=== PATIENT | female | born 1945 | race Two or more races ===

== ENCOUNTER 2019-01-15 17:08 | Inpatient (IN) | payer OTHER ==
[~2019-01-15] VITALS: Ht 149.9 cm; Wt 52.2 kg
[2019-01-15] MEDS ORDERED: ASA81 MG PO (17:35)
[2019-01-15] MEDS ORDERED: ZESTRIL5 MG PO (17:35)
[2019-01-15] MEDS ORDERED: FOLIC ACID1 MG PO (17:36)
[2019-01-15] MEDS ORDERED: ZANTAC300 MG PO (17:36)
[2019-01-15] MEDS ORDERED: PROTONIX40 MG PO (17:36)
[2019-01-21] MEDS ORDERED: LEVSIN/SL0.125 MG SL (09:23)
[2019-01-21] MEDS ORDERED: PANTOPRAZOLE SO40 MG PO (09:23)
[2019-01-21] MEDS ORDERED: DICY20TA PO (09:23)
[2019-01-21] MEDS ORDERED: ACIDOPHILUS-PE1 EAC2 PO (09:23)
[2019-01-21] MEDS ORDERED: FLAGYL500MG PO (09:23)
[2019-01-21] MEDS ORDERED: LISINOPRIL5 MG PO (09:23)
== END 2019-01-21 12:41 | disposition home or self-care (01) | DRG 372 ==
LOC: ER 17:08 → MEDJ 01-16 09:35 → SEC-K 01-16 09:35 → MEDJ 01-16 12:16
PROVIDERS: ADMIT Internal Medicine
PROC: 8E0ZXY6 Isolation (ICD-10-PCS; principal; 2019-01-17)
DX: A04.72 Enterocolitis due to Clostridium difficile, not specified as recurrent (principal); K57.32 Diverticulitis of large intestine without perforation or abscess without bleeding; K21.9 Gastro-esophageal reflux disease without esophagitis; I10 Essential (primary) hypertension; J32.8 Other chronic sinusitis

== ENCOUNTER 2019-02-27 09:55 | Day surgery (SDC) | payer OTHER ==
[~2019-02-27 09:55] MED LIST: ACIDOPHILUS-PE1 EAC2 PO; ASA81 MG PO; DICY20TA PO; FLAGYL500MG PO; FOLIC ACID1 MG PO; LEVSIN/SL0.125 MG SL; LISINOPRIL5 MG PO; PANTOPRAZOLE SO40 MG PO; PROTONIX40 MG PO; ZANTAC300 MG PO; ZESTRIL5 MG PO
== END 2019-02-27 17:30 | disposition home or self-care (01) ==
LOC: AMB-ENDOS 09:55
DX: K57.32 Diverticulitis of large intestine without perforation or abscess without bleeding (principal); K64.2 Third degree hemorrhoids

== ENCOUNTER 2021-02-10 08:15 | Day surgery (SDC) | payer OTHER | END 2021-02-10 14:25 | disposition home or self-care (01) | LOC: AMB-ENDOS 08:15 | PROVIDERS: ATTEND Colon & Rectal Surgery | DX: K62.89 Other specified diseases of anus and rectum (principal); K64.8 Other hemorrhoids; Z20.822 Contact with and (suspected) exposure to COVID-19 ==

== ENCOUNTER 2023-08-13 10:15 | Inpatient (IN) | payer OTHER ==
[~2023-08-13] VITALS: Ht 149.9 cm; Wt 55.8 kg
[2023-08-14] MEDS ORDERED: ATACAND16 MG PO (14:09)
[2023-08-14] MEDS ORDERED: CRESTOR40 MG PO (14:09)
[2023-08-14] MEDS ORDERED: TOPROL XL50 M1 PO (14:09)
[2023-08-14] MEDS ORDERED: CLONAZEPAM0.5 MG PO (14:10)
[2023-08-20] MEDS ORDERED: CEFTRIAXONE SODIUM 2,000 MG VIAL ONE (14:08)
[2023-08-20] MEDS ORDERED: METRONIDAZOLE/SODIUM CHLORIDE 500 MG/100 ML PIGGYBACK IV ONE (14:08)
[2023-08-20] MEDS ORDERED: CEFOXITIN SODIUM 2,000 MG in 0.9 % SODIUM CHLORIDE 100 ML IV ONE (15:45)
[2023-08-20] MEDS ORDERED: METRONIDAZOLE/SODIUM CHLORIDE 100 ML IV ONE (15:45)
[2023-08-20] MEDS ORDERED: CEFTRIAXONE SODIUM 2,000 MG VIAL IV ONE (15:45)
[2023-08-20] MEDS ORDERED: ENALAPRILAT DIHYDRATE 1.25 MG/ML VIAL IV PRN (16:45)
[2023-08-20] MEDS ORDERED: OxyCODONE HCL 5 MG TABLET (ROXICODONE) PO PRN (17:00)
[2023-08-20] MEDS ORDERED: METOCLOPRAMIDE HCL 5 MG/ML VIAL IV SCH (17:00)
[2023-08-20] MEDS ORDERED: INSULIN LISPRO 1,000 UNIT/10 ML UNITS SUBCUTANEO PRN (17:00)
[2023-08-20] MEDS ORDERED: RINGERS SOLUTION,LACTATED 1,000 ML IV SCH (17:00)
[2023-08-20] MEDS ORDERED: ONDANSETRON HCL 2 MG/ML VIAL IV PRN (17:00)
[2023-08-20] MEDS ORDERED: HYOSCYAMINE SULFATE 0.125 MG TAB.SUBL SL SCH (17:00)
[2023-08-20] MEDS ORDERED: GABAPENTIN 300 MG CAPSULE PO SCH (17:00)
[2023-08-20] MEDS ORDERED: MORPHINE SULFATE 4 MG/ML CARTRIDGE IV PRN (17:00)
[2023-08-20] MEDS ORDERED: CELECOXIB 200 MG CAPSULE PO SCH (17:00)
[2023-08-20] MEDS ORDERED: POLYETHYLENE GLYCOL 3350 17 GM BLIST.PACK PO SCH (17:00)
[2023-08-20] MEDS ORDERED: SIMETHICONE 125 MG CAPSULE PO SCH (17:00)
[2023-08-20] MEDS ORDERED: DEXTROSE 50 % IN WATER 0.5 G/ML DISP.SYRIN IV PRN (17:00)
[2023-08-20] MEDS ORDERED: ACETAMINOPHEN 500 MG GEL..CAP PO SCH (20:00)
[2023-08-20] MEDS ORDERED: FAMOTIDINE/PF 20 MG/2 ML VIAL IV PUSH SCH (21:00)
[2023-08-20 22:17] LABS: HEMATOCRIT 29.8 % (36.0-45.00); HEMOGLOBIN 10.4 g/dL (12.0-15.00); MEAN CELL VOLUME 95.4 fL (80.00-100.00); MEAN CORPUSCULAR HEMOGLOBIN 33.2 pg (27.00-32.0); MEAN CORPUSCULAR HGB CONC 34.8 g/dl (32.0-36.0); PLATELET COUNT 213 K/uL (150-450); RED BLOOD COUNT 3.13 M/uL (4.00-6.00); RED CELL DISTRIBUTION WIDTH 13.9 % (11.5-14.5)
[2023-08-20] MEDS ORDERED: FAMOTIDINE/PF 20 MG/2 ML VIAL ONE (22:21)
[2023-08-20] MEDS ORDERED: ACETAMINOPHEN 500 MG GEL..CAP PO ONE (22:22)
[2023-08-20] MEDS ORDERED: METOCLOPRAMIDE HCL 5 MG/ML VIAL ONE (22:22)
[2023-08-20] MEDS ORDERED: SIMETHICONE 125 MG CAPSULE PO ONE (22:22)
[2023-08-21] MEDS ORDERED: ACETAMINOPHEN 500 MG GEL..CAP PO ONE (01:58)
[2023-08-21] MEDS ORDERED: METOCLOPRAMIDE HCL 5 MG/ML VIAL ONE (01:58)
[2023-08-21] MEDS ORDERED: GABAPENTIN 300 MG CAPSULE PO ONE (01:58)
[2023-08-21 06:50] LABS: HEMATOCRIT 28.1 % (36.0-45.00); HEMOGLOBIN 9.8 g/dL (12.0-15.00); MEAN CORPUSCULAR HEMOGLOBIN 32.8 pg (27.00-32.0); MEAN CORPUSCULAR HGB CONC 34.9 g/dl (32.0-36.0); PLATELET COUNT 200 K/uL (150-450); RED BLOOD COUNT 2.99 M/uL (4.00-6.00); RED CELL DISTRIBUTION WIDTH 13.5 % (11.5-14.5)
[2023-08-21 07:02] LABS: ALBUMIN 2.9 gm/dL (3.4-5.0); CALCIUM 8.3 mg/dL (8.5-10.1); CREATININE SERUM 0.82 mg/dL (0.55-1.02); GFR 67.6; MAGNESIUM 1.8 mg/dL (1.8-2.4); PHOSPHOROUS 4.2 mg/dL (2.5-4.9); POTASSIUM 3.86 mEq/L (3.5-5.1)
[2023-08-21] MEDS ORDERED: LISINOPRIL 5 MG TABLET PO SCH (09:00)
[2023-08-21] MEDS ORDERED: LACTULOSE 20 G/30 ML BLIST.PACK PO SCH (09:00)
[2023-08-21] MEDS ORDERED: LACTOBACILLUS ACIDOPHILUS 1 CAP CAP PO SCH (09:00)
[2023-08-21] MEDS ORDERED: ENOXAPARIN SODIUM 40 MG/0.4 ML SYRINGE SUBCUTANEO SCH (17:00)
[2023-08-22] MEDS ORDERED: ENOXAPARIN SODIUM 40 MG/0.4 ML SYRINGE SUBCUTANEO SCH (09:00)
== END 2023-08-23 20:32 | disposition home or self-care (01) | DRG 330 ==
LOC: O/R 08-20 08:29 → SURH 08-20 10:15
PROVIDERS: ADMIT Colon & Rectal Surgery; ATTEND Colon & Rectal Surgery
PROC: 0DTN4ZZ Resection of Sigmoid Colon, Percutaneous Endoscopic Approach (ICD-10-PCS; principal; 2023-08-20)
PROC: 0DBP4ZZ Excision of Rectum, Percutaneous Endoscopic Approach (ICD-10-PCS; 2023-08-20)
DX: K58.9 Irritable bowel syndrome, unspecified (principal); K57.32 Diverticulitis of large intestine without perforation or abscess without bleeding